=== PATIENT | male | born 2000 | race Caucasian/White ===

== ENCOUNTER 2023-09-07 03:05 | Emergency (ER) | payer OTHER, SELFPAY ==
[2023-09-07] VITALS (7 sets, daily range): BP systolic 90–133; BP diastolic 46–88; PULSE 60–89; RESP 12–18; TEMP 36.3–36.7; O2SAT 96–98; BMI 21.8
--- NOTE | ~2023-09-07 | XR_ITS ---
EXAMINATION: XR CHEST CLINICAL INFORMATION: Unresponsive COMPARISON: None available. TECHNIQUE: Frontal view of the chest was obtained. FINDINGS: Lung volumes are symmetric. No focal consolidation is seen. No evidence of pneumothorax, pleural effusion, or pulmonary edema. The cardiomediastinal contour is unremarkable. No acute osseous findings are seen. XR/XR chest 1V IMPRESSION: No acute cardiopulmonary findings.
--- NOTE | ~2023-09-07 | CT_ITS ---
EXAMINATION: NONCONTRAST HEAD CT NONCONTRAST CERVICAL SPINE CT INDICATION INFORMATION: Unresponsive COMPARISON: None TECHNIQUE: Separate noncontrast CT examinations of the head and cervical spine were performed. Coronal head CT images and coronal and sagittal cervical spine images were created at the technologist workstation. DLP: 989 mGy-cm DOSE LOWERING TECHNIQUES: This CT examination was performed using dose optimization techniques as appropriate, variously including the following: - Automated exposure control - Adjustment of mA and/or kV according to patient size (this includes techniques or standardized protocols for targeted exams were dose is matched to indication/reason for exam; i.e. extremities or head) - Use of iterative reconstruction technique FINDINGS: Head: There is no evidence of acute intracranial hemorrhage or territorial infarction. No abnormal mass-effect or midline shift is seen. Nicole to white matter differentiation is well preserved. No extra-axial fluid collections are identified. The ventricles are normal in size. There is no abnormal attenuation within the brain parenchyma. The osseous structures and soft tissues are normal. The mastoid air cells are well-aerated. Mucous retention cysts in the bilateral maxillary sinuses. Complete opacification of the right frontal sinus. Cervical spine: There is anatomic alignment of the vertebral bodies and posterior elements. Vertebral body heights are maintained. Intervertebral disc spaces are preserved. No evidence of acute fracture. No prevertebral soft tissue swelling. Visualized portions of the lung apices are unremarkable. Bilateral tonsilloliths are noted. The thyroid gland is unremarkable. CT/CT head/brain wo IV con IMPRESSION: No acute findings identified in the head or cervical spine.
--- NOTE | ~2023-09-07 | CT_ITS ---
EXAMINATION: NONCONTRAST HEAD CT NONCONTRAST CERVICAL SPINE CT INDICATION INFORMATION: Unresponsive COMPARISON: None TECHNIQUE: Separate noncontrast CT examinations of the head and cervical spine were performed. Coronal head CT images and coronal and sagittal cervical spine images were created at the technologist workstation. DLP: 989 mGy-cm DOSE LOWERING TECHNIQUES: This CT examination was performed using dose optimization techniques as appropriate, variously including the following: - Automated exposure control - Adjustment of mA and/or kV according to patient size (this includes techniques or standardized protocols for targeted exams were dose is matched to indication/reason for exam; i.e. extremities or head) - Use of iterative reconstruction technique FINDINGS: Head: There is no evidence of acute intracranial hemorrhage or territorial infarction. No abnormal mass-effect or midline shift is seen. Nicole to white matter differentiation is well preserved. No extra-axial fluid collections are identified. The ventricles are normal in size. There is no abnormal attenuation within the brain parenchyma. The osseous structures and soft tissues are normal. The mastoid air cells are well-aerated. Mucous retention cysts in the bilateral maxillary sinuses. Complete opacification of the right frontal sinus. Cervical spine: There is anatomic alignment of the vertebral bodies and posterior elements. Vertebral body heights are maintained. Intervertebral disc spaces are preserved. No evidence of acute fracture. No prevertebral soft tissue swelling. Visualized portions of the lung apices are unremarkable. Bilateral tonsilloliths are noted. The thyroid gland is unremarkable. CT/CT cervical spine wo IV con IMPRESSION: No acute findings identified in the head or cervical spine.
--- NOTE | 2023-09-07 03:08 | ECG_ITS ---
Test Reason : OVERDOSE Blood Pressure : / mmHG Vent. Rate : 063 BPM Atrial Rate : 063 BPM P-R Int : 174 ms QRS Dur : 096 ms QT Int : 438 ms P-R-T Axes : 078 089 068 degrees QTc Int : 448 ms Normal sinus rhythm Early repolarization Normal ECG No previous ECGs available Referred By: Tray Smith Electronically Signed By:SOHAM ALLEN MD
--- NOTE | 2023-09-07 03:11 | ED_ITS ---
HPI - Altered Mental Status General Chief Complaint: ETOH/Substance Use Stated Complaint: Unresponsive Time Seen by Provider: 09/07/23 03:07 Source: other (Bystander dropped him off) Mode of arrival: other (Dropped off by bystander) Limitations: other (Unresponsive) History of Present Illness HPI narrative: 23-year-old male unknown to us was dropped off by bystander who do not have much history on the patient, stated that the patient was talking then suddenly collapsed and became unresponsive. On arrival patient is unresponsive only open his eyes to sternal rub, smell alcohol on breath, no IV morales. Related Data Allergies Allergy/AdvReac Type Severity Reaction Status Date / Time Unable to Assess Allergy Verified 09/07/23 03:08 Review of Systems 2 Review of Systems: Yes Unobtainable due to mental status PMFSH Past Medical History Source: unable to obtain Social History Social History Smoked in Last 30 Days: Yes Use of substances other than those prescribed or required for medical reasons: Yes Advance Directives: No Advance Directives Information Provided: No Physical Exam ED Vital Signs: Vital Signs - 24 hr 09/07/23 03:14 09/07/23 04:36 09/07/23 04:59 Temperature 98.0 F Pulse Rate 89 89 84 Respiratory Rate 18 12 13 Blood Pressure 113/72 116/80 133/86 Pulse Oximetry 97 97 97 Oxygen Delivery Method Room Air Room Air Room Air 09/07/23 05:50 09/07/23 05:59 09/07/23 06:30 Temperature 97.3 F Pulse Rate 66 60 70 Respiratory Rate 14 13 15 Blood Pressure 107/52 L 90/46 L 126/88 Pulse Oximetry 98 97 96 Oxygen Delivery Method Room Air Room Air Room Air BMI result Body Mass Index 21.8 Vital signs have been reviewed and appear to be correct. Blood pressure elevated. Heart rate normal. Respiratory rate normal. Temperature normal. Oxygen saturation normal. Appearance: Unresponsive open his eyes to sternal rub, alcohol on breath. Head: Normal external exam. Normocephalic. Atraumatic. No Chandler signs noted. No raccoon eyes noted Eyes: PERRLA. EOMI. Conjunctiva and sclera normal. Eyelids normal. ENT: TM's Normal. Pharynx normal. Uvula midline. Moist mucous membranes. No trismus noted. No drooling noted. No muffled voice noted. Neck: Normal inspection. Neck supple. FROM. No adenopathy. Thyroid Normal. No meningeal signs. No neck mass noted. CVS: Normal heart rate and rhythm. Heart sound normal. No murmurs noted. Pulses normal throughout. Respiratory: No respiratory distress. Painless inspiration. Breath sounds normal. No wheezes/rales/rhonchi noted. Chest nontender. No accessory muscle usage noted or decreased air movement noted. Abdomen: Soft and nontender. Bowel sounds normal in all 4 quadrants. No distention noted. No organomegaly noted. No visible injury noted. Back: No CVA tenderness. Full range of motion noted. Skin: Skin warm and dry. Normal skin color. Normal skin turgor. No rashes/lesions/lacerations noted. Extremities: No lower extremity edema. Extremities exhibit normal range of motion. Extremities nontender. Neuro: Cranial nerve exam: II-XII are grossly intact No motor deficit. No sensory deficit. Reflexes normal. Course Reevaluation(s) Reevaluation #1: Patient now is more awake but disoriented and incoherent father is at the bedside confirmed patient use cocaine/PCP/alcohol. Patient now is agitated required Versed for sedation. Time: 04:30 Reevaluation #2: Patient is sedated with Versed, await for CT head/cervical spine likely negative for acute pathology, also waiting for urine sample to check for substance abuse, patient needs to be re-evaluated when he is more sober. Time: 06:00 Reevaluation #3: Patient is agitated, non redirectable require Versed to calm down. Case signed out to Dr. Gillette for re-evaluation when sober. Time: 07:00 Medications Administered Discontinued Medications Generic Name Dose Route Start Last Admin Trade Name Mayankq PRN Reason Stop Dose Admin Sodium Chloride 1,000 mls @ 999 mls/hr 09/07/23 03:08 09/07/23 04:47 Ns IV 09/07/23 04:08 Infused .Q1H1M ONE Infusion Midazolam HCl 2 mg 09/07/23 04:45 09/07/23 04:40 Midazolam Hcl/Pf 2 Mg/2 Ml Vial IVPUSH 09/07/23 04:46 2 mg ONCE ONE Administration Naloxone HCl 2 mg 09/07/23 03:08 09/07/23 03:20 Naloxone Hcl 2 Mg/2 Ml Syringe IVPUSH 09/07/23 03:09 2 mg ONCE ONE Administration Medical Decision Making Differential Diagnosis Differential Diagnoses: The differential diagnosis associated with the presentation includes (Intracranial bleed, severe alcohol intoxication, polysubstance abuse, electrolyte abnormality, severe anemia, UTI.) Admission/Observation Consideration of admission/observation: Escalation of care including admission/observation considered Lab Data MDM Lab Attestation statement: I reviewed the patient's lab results. 09/07/23 03:35 09/07/23 03:35 Labs: Lab Results 09/07/23 09/07/23 Range/Units 03:35 04:57 WBC 10.1 (4.8-10.8) X10*3/uL RBC 5.50 (4.60-5.80) X10*6/uL Hgb 16.8 (14.0-18.0) g/dl Hct 51.8 (42.0-52.0) % MCV 94.2 (80.0-98.0) fL MCH 30.5 (27.0-33.0) pg MCHC 32.4 (31.0-36.0) g/dl RDW 13.5 (11.0-16.0) % Plt Count 337 (160-400) X10*3/uL MPV 8.7 L (9.4-12.4) fL Immature Gran % (Auto) 0.6 H (0.0-0.4) % Neut % (Auto) 53.7 (45-73) % Lymph % (Auto) 30.5 (20-40) % [place] % (Auto) 8.4 (2-11) % Eos % (Auto) 6.4 H (0-4) % Baso % (Auto) 0.4 (0-2) % Lymph # (Auto) 3.1 (1.2-4.9) X10*3/uL [place] # (Auto) 0.9 (0.1-1.2) X10*3/uL Eos # (Auto) 0.7 H (0.0-0.4) X10*3/uL Baso # (Auto) 0.0 (0.0-0.2) X10*3/uL Abs Immat Gran (auto) 0.06 H (0.00-0.03) X10*3/uL Absolute Neuts (auto) 5.4 (2.0-8.3) x10*3/uL Absolute Nucleated RBC 0.000 (0.0-0.012) X10*3/uL Nucleated RBC % (auto) 0.0 (0.0-0.2) /100WBC Sodium 146 H (135-145) mmol/L Potassium 4.0 (3.3-5.1) mmol/L Chloride 110 H (96-108) mmol/L Carbon Dioxide 24 (22-29) mmol/L Anion Gap 16 (12-20) BUN 5 L (9-16) mg/dL Creatinine 0.80 (0.5-1.4) mg/dL Estim Creat Clear Calc 139.7 Estimated GFR > 60 Random Glucose 113 (60-115) mg/dL Calcium 9.1 (8.4-10.2) mg/dL Total Bilirubin 0.3 (0.0-1.0) mg/dL Direct Bilirubin 0.2 (0.0-0.5) mg/dL AST 22 (5-37) U/L ALT 33 (0-40) U/L Alkaline Phosphatase 65 (39-117) U/L Troponin I High Sens < 2.7 (<3.5-35.0) ng/L Total Protein 8.0 (6.5-8.0) g/dL Albumin 4.9 (3.5-5.0) g/dL Lipase 96 H (8-78) U/L Urine Color Yellow Urine Appearance Clear Urine pH 6.5 (5.0-9.0) Ur Specific [place] <= 1.005 (1.005-1.025) Urine Protein 100 (2+) H (Neg-Trace) mg/dL Urine Glucose (UA) Negative (Negative) mg/dL Urine Ketones Negative (Negative) mg/dL Urine Blood Negative (Negative) Urine Nitrite Negative (Negative) Ur Leukocyte Esterase Negative (Negative) Urine RBC 0-2 (0-2) /HPF Urine WBC 0-5 (0-5) /HPF Ur Squamous Epith Cells 0-2 (0-2) /HPF Urine Bacteria None Seen (None Seen) Hyaline Casts 0-2 (0-2) /LPF Salicylates < 5.0 L (15-30) mg/dL Urine Opiates Screen Not Detected (Not Detect) Urine Fentanyl Screen Not Detected (Not Detect) Acetaminophen < 3 (<30) mcg/mL Ur Barbiturates Screen Not Detected (Not Detect) Ur Phencyclidine Scrn POSITIVE H (Not Detect) Ur Amphetamines Screen Not Detected (Not Detect) U Benzodiazepines Scrn POSITIVE H (Not Detect) Urine Cocaine Screen POSITIVE H (Not Detect) U Marijuana (THC) Screen POSITIVE H (Not Detect) Ethyl Alcohol 305 H* mg/dL Influenza Type A (PCR) NEGATIVE (Negative) Influenza Type B (PCR) NEGATIVE (Negative) RSV RNA Qual (PCR) NEGATIVE (Negative) SARS-CoV-2 RNA (RT-PCR) NEGATIVE (Negative) Chronic Conditions Patient?s care impacted by: Other (Chronic polysubstance abuse/alcohol abuse.) Critical Care Time Critical Care Time Critical Care Time: Yes Total Critical Care Time: 45 Attestation: I spent 45 minutes providing critical care service to the patient, this including time spent at the bedside to evaluate the patient, reassess the patient, monitoring vital signs, review labs, and radiographic studies, counseling the patient/family, discussing the case with consultants, disposition the patient. Discharge Plan Discharge Clinical Impression: Alcoholic intoxication, Polysubstance abuse Patient Disposition: Still a Patient Instructions: Polysubstance Abuse (ED)
[2023-09-07] MEDS: Naloxone HCl 2 MG/2 ML SYRINGE IVPUSH (03:20)
[2023-09-07] MEDS: 0.9 % Sodium Chloride 1,000 ML 999 ML IV (03:20)
[2023-09-07 03:38] LABS: MANUAL DIFF FLAG NO
[2023-09-07 03:39] LABS: Basophils Percent Auto 0.4 % (0-2); Eosinophils Absolute Auto 0.7 X10*3/uL (0.0-0.4); Eosinophils Percent Auto 6.4 % (0-4); Hematocrit 51.8 % (42.0-52.0); Hemoglobin 16.8 g/dl (14.0-18.0); Imm Gran Abs Auto 0.06 X10*3/uL (0.00-0.03); Imm Gran Pct Auto 0.6 % (0.0-0.4); Lymphocytes Absolute Auto 3.1 X10*3/uL (1.2-4.9); Lymphocytes Percent Auto 30.5 % (20-40); Mean Corpuscular HGB Conc 32.4 g/dl (31.0-36.0); Mean Corpuscular Hemoglobin 30.5 pg (27.0-33.0); Mean Corpuscular Volume 94.2 fL (80.0-98.0); Mean Platelet Volume 8.7 fL (9.4-12.4); Monocytes Absolute Auto 0.9 X10*3/uL (0.1-1.2); Monocytes Percent Auto 8.4 % (2-11); Neutrophils Absolute Auto 5.4 x10*3/uL (2.0-8.3); Neutrophils Percent Auto 53.7 % (45-73); Platelet Count 337 X10*3/uL (160-400); Red Cell Distribution Width 13.5 % (11.0-16.0); White Blood Count 10.1 X10*3/uL (4.8-10.8)
[2023-09-07 03:55] LABS: Alanine Aminotransferase 33 U/L (0-40); Albumin Level 4.9 g/dL (3.5-5.0); Alkaline Phosphatase 65 U/L (39-117); Anion Gap 16 (12-20); Aspartate Amino Transferase 22 U/L (5-37); Bilirubin Direct 0.2 mg/dL (0.0-0.5); Bilirubin Total 0.3 mg/dL (0.0-1.0); Blood Urea Nitrogen 5 mg/dL (9-16); Calcium 9.1 mg/dL (8.4-10.2); Carbon Dioxide 24 mmol/L (22-29); Chloride 110 mmol/L (96-108); Creatinine Clr Calc Pharmacy 139.7; Estimated Glomerular Filt Rate > 60; Ethanol 305 mg/dL; Glucose Random 113 mg/dL (60-115); Lipase 96 U/L (8-78); Sodium 146 mmol/L (135-145)
[2023-09-07 04:01] LABS: Acetaminophen LAB < 3 mcg/mL (<30); Salicylate < 5.0 mg/dL (15-30); Troponin-I High Sensitivity < 2.7 ng/L (<3.5-35.0)
[2023-09-07 04:18] LABS: Influenza A PCR NEGATIVE (Negative); Influenza B PCR NEGATIVE (Negative); Resp Syncy Virus RNA Qual PCR NEGATIVE (Negative); SARS COV2 PCR INHOUSE NEGATIVE (Negative)
--- NOTE | 2023-09-07 04:38 | PC.NURSE ---
Patient dropped off by his friend at triage, unresponsive. Patient's friend does not have much history on patient. Per Gilberto, patient's friend, patient has not been acting himself all day. Gilberto's phone number [phone]. Patient is unresponsive, only opens his eyes to sternal rub. 20 GIV line established in R AC, labs drawn and sent to lab for processing. Patient given Narcan 2 mg IV and 1 L NS hung.
--- NOTE | 2023-09-07 04:39 | PC.NURSE ---
Patient is awake, confused, agitated, attempting to get out of the bed and trying to pull IV line out, remove monitor technician and BP cuff, unable to redirect patient. Versed 2 mg IV given. Patient is awake, VSS.
[2023-09-07] MEDS: Midazolam HCl/PF 2 MG/2 ML VIAL IVPUSH (04:40)
[2023-09-07 05:15] LABS: Amphetamine Screen Urine Not Detected (Not Detect); Barbiturates, Urine Not Detected (Not Detect); Benzodiazepines Screen Urine POSITIVE (Not Detect); Cannabinoid Screen Urine POSITIVE (Not Detect); Cocaine Screen Urine POSITIVE (Not Detect); Fentanyl, urine Not Detected (Not Detect); Opiate Screen Urine Not Detected (Not Detect); Phencyclidine Screen Urine POSITIVE (Not Detect)
--- NOTE | 2023-09-07 05:22 | PC.NURSE ---
Patient is sleeping, RR16, BP 99/53, P 74, O2 Sat 97% RA, not in distress.
[2023-09-07 05:29] LABS: Appearance Urine Clear; Color Urine Yellow; Glucose Urine UA Negative (Negative); Leukocyte Esterase Urine Negative (Negative); Nitrite Urine Negative (Negative); PH 6.5 (5.0-9.0); Specific Gravity - Urine <= 1.005 (1.005-1.025); UMIC TRIGGER UACC YES; Urine Blood Negative (Negative); Urine Ketones Negative (Negative); Urine Protein 100 (2+) mg/dL (Neg-Trace)
[2023-09-07 05:32] LABS: Bacteria Urine None Seen (None Seen); Hyaline Casts Urine 0-2 /LPF (0-2); RBC Urine 0-2 /HPF (0-2); Squamous Epithelial Cell Urine 0-2 /HPF (0-2); WBC Urine 0-5 /HPF (0-5)
[2023-09-07] MEDS: Midazolam HCl/PF 2 MG/2 ML VIAL 1 MG IVPUSH (06:51)
--- NOTE | 2023-09-07 08:03 | PC.NURSE ---
Assumed care of this pt at 0700. Pt alert, oriented to self, asked multiple times why is he here, where is his phone and where is his dad. Pt reminded of the situation each time.
[2023-09-10 07:43] LABS: Glucose, Whole Blood 114 mg/dL (60-115)
== END 2023-09-07 09:06 | disposition home or self-care (01) ==
PROVIDERS: Emergency Medicine; Emergency Provider Emergency Medicine Emergency Medical Services
DX: F10.129 Alcohol abuse with intoxication, unspecified (principal); F14.10 Cocaine abuse, uncomplicated; F12.10 Cannabis abuse, uncomplicated; R40.4 Transient alteration of awareness; M54.2 Cervicalgia; F16.10 Hallucinogen abuse, uncomplicated; Y90.8 Blood alcohol level of 240 mg/100 ml or more; Z20.828 Contact with and (suspected) exposure to other viral communicable diseases; Z20.822 Contact with and (suspected) exposure to COVID-19; Z79.899 Other long term (current) drug therapy
CPT/HCPCS: 0241U; 70450; 71045; 72125; 80048; 80076; 80143; 80179; 80307; 81001; 82947; 83690; 84484; 85025; 93005; 96361; 96374; 96375; 96376; 99285; J2250; J2310

== ENCOUNTER → 2023-09-07 03:08 | Outpatient (BNV) | payer OTHER, SELFPAY | PROVIDERS: Emergency Provider Emergency Medicine Emergency Medical Services; Visit Provider Internal Medicine Cardiovascular Disease | DX: I49.40 Unspecified premature depolarization (principal) | CPT/HCPCS: 93010 ==

== ENCOUNTER 2024-12-17 12:33 | Emergency (ER) | payer OTHER, SELFPAY ==
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
--- NOTE | ~2024-12-17 | CT_ITS ---
EXAMINATION: CT HEAD WITHOUT IV CONTRAST HISTORY: head trauma. TECHNIQUE: Unenhanced helical CT of the head was performed per standard departmental protocol. Coronal and sagittal reformats of the head were also evaluated. One or more of the following techniques was used for dose reduction: Automated exposure control, adjustment of the mA and/or kV according to patient size, use of iterative reconstruction technique. DLP: 723 mGy-cm COMPARISON: Comparison is made with the prior examination dated 09/07/2023. FINDINGS: BRAIN: The brain parenchyma is unremarkable. There is normal bajwa/white differentiation. The ventricular system is normal in size and configuration. There is no mass effect or midline shift. No intra- or extra-axial fluid collections are identified. SINUSES: The visualized paranasal sinuses are clear. The mastoid air cells and middle ear cavities are well pneumatized. ORBITS: The visualized orbits are unremarkable. BONES/SOFT TISSUES: There is mild left frontal soft tissue swelling. The calvarium is intact. No suspicious lytic or sclerotic lesions. CT/CT head/brain wo IV con IMPRESSION: Mild left frontal soft tissue swelling. No acute intracranial abnormality. Electronically signed by: Angel Villagomez MD 12/17/2024 02:45 PM EDT
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
[2024-12-17 12:50] VITALS: BP 124/71; PULSE 113; RESP 22; TEMP 36.9; O2SAT 97; BMI 19.0
[2024-12-17] MEDS: Haloperidol Lactate 5 MG/ML VIAL IM (13:21)
[2024-12-17] MEDS: diazePAM 10 MG/2 ML CARTRIDGE 2.5 MG IM (13:21)
[2024-12-17] MEDS: diphenhydrAMINE HCL 50 MG/ML VIAL IM (13:21)
--- NOTE | 2024-12-17 13:46 | PC.NURSE ---
pt sleeping in the stretcher, even and regular respirations, on continuous telemetry monitoring, 1:1 constant observation via patient observer at the bedside
[2024-12-17 14:00] VITALS: PULSE 93; RESP 16
[2024-12-17 14:45] LABS: Appearance Urine Clear; Color Urine Yellow; Glucose Urine UA Negative (Negative); Leukocyte Esterase Urine Negative (Negative); Nitrite Urine Negative (Negative); PH 5.5 (5.0-9.0); UMIC TRIGGER UACC YES; Urine Blood Moderate (2+) (Negative); Urine Ketones Negative (Negative); Urine Protein 100 (2+) mg/dL (Neg-Trace)
[2024-12-17 14:54] LABS: Bacteria Urine None Seen (None Seen); Hyaline Casts Urine 0-2 /LPF (0-2); RBC Urine 0-2 /HPF (0-2); Squamous Epithelial Cell Urine 0-2 /HPF (0-2); WBC Urine 0-5 /HPF (0-5)
[2024-12-17 15:02] LABS: Amphetamine Screen Urine Not Detected (Not Detect); Barbiturates, Urine Not Detected (Not Detect); Benzodiazepines Screen Urine Not Detected (Not Detect); Buprenorphine Scr Not Detected (Not Detect); Cannabinoid Screen Urine POSITIVE (Not Detect); Cocaine Screen Urine POSITIVE (Not Detect); Fentanyl, urine Not Detected (Not Detect); Methadone Screen, Urine Not Detected (Not Detect); Opiate Screen Urine Not Detected (Not Detect); Oxycodone Screen Urine Not Detected (Not Detect); Phencyclidine Screen Urine Not Detected (Not Detect)
[2024-12-17 15:32] LABS: MANUAL DIFF FLAG NO
[2024-12-17 15:33] LABS: Basophils Absolute Auto 0.1 X10*3/uL (0.0-0.2); Basophils Percent Auto 0.4 % (0-2); Eosinophils Absolute Auto 0.3 X10*3/uL (0.0-0.4); Eosinophils Percent Auto 1.7 % (0-4); Hematocrit 43.9 % (42.0-52.0); Hemoglobin 14.9 g/dl (14.0-18.0); Imm Gran Abs Auto 0.12 X10*3/uL (0.00-0.03); Imm Gran Pct Auto 0.7 % (0.0-0.4); Lymphocytes Percent Auto 12.1 % (20-40); Mean Corpuscular HGB Conc 33.9 g/dl (31.0-36.0); Mean Corpuscular Volume 91.3 fL (80.0-98.0); Mean Platelet Volume 8.7 fL (9.4-12.4); Monocytes Absolute Auto 1.5 X10*3/uL (0.1-1.2); Monocytes Percent Auto 8.7 % (2-11); Neutrophils Absolute Auto 12.9 x10*3/uL (2.0-8.3); Neutrophils Percent Auto 76.4 % (45-73); Platelet Count 293 X10*3/uL (160-400); Red Blood Count 4.81 X10*6/uL (4.60-5.80); Red Cell Distribution Width 13.3 % (11.0-16.0); White Blood Count 16.8 X10*3/uL (4.8-10.8)
[2024-12-17 15:38] LABS: INTERNATIONAL NORM RATIO 1.1 (0.9-1.1); Prothrombin Time 12.8 SEC (10.9-12.4)
--- OUTSIDE RECORDS SUMMARY | 2024-12-17 15:45 | XMS_ITS | Encounter Summary ---
Author Organization [facility] Address [address] [place] [phone] Phone Care Team Providers Care Actimize Architect Name Role Phone Ashley Velez MD Primary Care Provider [phone] Encounter Details Date Type Department Care Team (Late st Contact Info) Description 07/27/2011 Conversion Encounter Pediatric [facility]oles[facility] [address] [place] [id number] Social History Tobacco Use Types Packs/Day Years Used Date Smoking Tobacco: Never Assessed Sex and Gender Information Value Date Recorded Sex Assigned at Not on file Legal Sex Male 6:33 PM EDT Gender Identity Not on file Sexual Orientation Not on file documented as of this encounter Plan of Treatment Not on file documented as of this encounter Visit Diagnoses Not on filedocumented in this encounter Care Teams Actimize Architect Relationship Specialty Start Date End Date Ashley Velez MD [address] [place] [address] PCP - General 12/12/17 documented as of this encounter
--- OUTSIDE RECORDS SUMMARY | 2024-12-17 15:45 | XMS_ITS | Clinical Summary ---
Author Organization [facility] Address [address] [place] [id number] Phone Care Team Providers Care Water Use Inspector Name Role Phone Ashley Velez MD Primary Care Provider [phone] Immunizations Immunization Administration Dates Next Due DTaP 5 03/13/2005, 2,2000, 001,2000 H1N1 09/22/2009,05/19/2009 HPV Vaccine 9 Valent 07/06/2016,04/27/2016 Hep A, ped/adol 04/27/2016 Hep B, ped/adol 01/14/2001,2000,2000 Hib (PRP-T) 07/03/2001, 1,2000, 000 IPV 06/01/2004, 1,2000, 000 MMR 03/13/2005,07/03/2001 Meningococcal Conj (Menactra) MCV4P 04/27/2016,0 09/28/2011 Pneumococcal Conjugate 04/04/2001,2000,2000, 000 Tdap 09/28/2011 Varicella 09/22/2009,04/04/2001 Social History Tobacco Use Types Packs/Day Years Used Date Smoking Tobacco: Some Days Comments:Current Some Day Sm oker Sex and Gender Information Value Date Recorded Sex Assigned at Not on file Legal Sex Male 6:33 PM EDT Gender Identity Not on file Sexual Orientation Not on file Last Filed Vital Signs Vital Sign Reading Time Taken Comments Blood Pressure - - Pulse 70 12/11/2016 2:23 PM EDT Temperature 36.7 ??C (98 ??F) 12/11/2016 2:23 PM EDT Respiratory Rate - - Oxygen Saturation 99% 12/11/2016 2:23 PM EDT Inhaled Oxygen Concentration - - Weight 58 kg (127 lb 12.8 oz) 12/11/2016 2:23 PM EDT Height 182.9 cm (6') 12/11/2016 2:23 PM EDT Body Mass Index 17.33 12/11/2016 2:23 PM EDT Plan of Treatment Health Maintenance Due Date Last Done Comments HPV Vaccines (3 - Male 3-dose series) 10/25/2016 07/06/2016, 04/27/2016 Hepatitis A Vaccines (2 of 2 - 2-dose series) 10/25/2016 04/27/2016 DTaP,Tdap,and Td Vaccines (7 - Td or Tdap) 09/28/2021 09/28/2011, 03/13/2005, 10/10/2001, Additional history exists Influenza Vaccines (#1) 2024 COVID-19 Vaccine ( season) 2024 Hepatitis B Vaccines Completed 01/14/2001, 2000, 2000 Pneumococcal Vaccine Completed 04/04/2001, 2000, 2000, Additional history exists HIB Vaccines Completed 07/03/2001, 10/04, 2000, Additional history exists IPV Vaccines Completed 06/01/2004, 03/08, 2000, Additional history exists MMR Vaccines Completed 03/13/2005, 07/03/2001 Varicella Vaccines Completed 09/22/2009, 04/04/2001 Meningococcal Vaccine Completed 04/27/2016, 012 Men B Vaccine Aged Out No longer elig ible based on patient's age to complete this topic Care Teams Water Use Inspector Relationship Specialty Start Date End Date Ashley Velez MD [address] [facility] [place] [id number] PCP - General 12/12/17
[2024-12-17 15:51] LABS: Alanine Aminotransferase 27 U/L (0-40); Albumin Level 4.5 g/dL (3.5-5.0); Anion Gap 18 (12-20); Aspartate Amino Transferase 38 U/L (5-37); Bilirubin Direct 0.2 mg/dL (0.0-0.5); Bilirubin Total 0.5 mg/dL (0.0-1.0); Blood Urea Nitrogen 11 mg/dL (9-16); Carbon Dioxide 20 mmol/L (22-29); Chloride 106 mmol/L (96-108); Creatinine Clr Calc Pharmacy 135.7; Estimated Glomerular Filt Rate > 60; Ethanol 30 mg/dL; Glucose Random 87 mg/dL (60-115); Lipase 12 U/L (8-78); Magnesium 2.3 mg/dL (1.6-2.6); Potassium 3.5 mmol/L (3.3-5.1); Sodium 140 mmol/L (135-145); Total Protein 6.9 g/dL (6.5-8.0)
[2024-12-17 16:13] LABS: Alkaline Phosphatase 60 U/L (39-117)
[2024-12-17 16:15] LABS: Acetaminophen LAB < 3 mcg/mL (<30); Salicylate < 5.0 mg/dL (15-30)
[2024-12-17 17:19] VITALS: BP 128/63; PULSE 93; RESP 16; O2SAT 99
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
--- NOTE | 2024-12-17 19:29 | PC.NURSE ---
pt father Amilcar Hirschn reports he does not have a personal phone but may be reached by patients friend Medhat Gomez [phone]. If patient is to be discharged, please call Medhat who will get in contact with patients father Amilcar Pizarro.
--- NOTE | 2024-12-17 19:31 | PC.NURSE ---
pt escorted to behavioral pod by security with section 12 form. verbal nurse to nurse report given to receiving MARCO Curtis.
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
--- NOTE | 2024-12-17 21:15 | PC.NURSE ---
pt comes from the main ED with security. GAit steady, pt immediatley went to bed. Appears somewhat sedated however respirations are even unlabored. PT denies daily drinking- ciwa 0. Plan of care onoging
--- NOTE | 2024-12-17 23:58 | MHC.CARE ---
This process description writer contacted [facility] to inquire if they were familiar with the pt as he has no history at [facility] and unable to engage after multiple attempts. They denied any previous psychiatric evaluations at this time and indicated that he historically has only been there for medical reasons in the distant past. Information was passed to pod RN and Care Team Clinician.
--- NOTE | 2024-12-18 06:26 | PC.NURSE ---
Patient slept through the night, no distress observed/reported, 15 minutes safety check, no behavior and safety concerns, care consult ordered/pending evaluation, will continue to monitor
--- NOTE | 2024-12-18 07:39 | PC.NURSE ---
Assumed care of patient at 0645, patient appears to be in no apparent distress this am, sleeping, respirations even and unlabored. Continue plan of care for CARE team assessment
--- NOTE | 2024-12-18 07:50 | PC.NURSE ---
Pts CK was noted by this RN to be abnormally high, reached out to provider Minh, plan to re-check
--- NOTE | 2024-12-18 07:56 | MHC.EDTECH ---
Patient refused repeat labs, this tech attempted to educate the patient on the importance having blood test performed. Patient continuing to refuse. RN aware and speaking with patient.
--- NOTE | 2024-12-18 07:57 | PC.NURSE ---
Patient refusing labs, stating I gave them yesterday, I don't want them . After educating patient on importance of getting labs taken and risks of not, he became agreeable but asked to hold off for an hour
--- NOTE | 2024-12-18 09:46 | MHC.EDTECH ---
Patient again refusing lab work. RN aware and attempted to explain the importance of tests.
--- NOTE | 2024-12-18 09:59 | PC.NURSE ---
Pt refused additional lab draw, educated on risks of elevated CK
--- NOTE | 2024-12-18 11:22 | MHC.RECOVRN ---
Went to pt in 5 to offer support and resources for detox request. Pt reports he has been using alcohol for a long time. He was not open about amount, frequency, duration. He did state that he was unable to assess weather alcohol and other substance use was interfering with his work and health because I have been drinking for so long . Pt requesting further information about inpt. vs outpt. treatment. Information given and pt wishes to f/u in community with resources. He is concerned about leaving his father alone and therefore does not wish to attend detox. Father also uses alcohol and pt. hoping to help him quit too. Encouraged to attend [facility] for peer support, RC and assistance with obtaining a phone as he has no current cell or landline. Report to ED nurse Karen and Care Team. T/W available PRN.
[2024-12-18 11:45] VITALS: BP 143/71; PULSE 109; RESP 14; TEMP 36.1; O2SAT 95
[2024-12-18 11:47] VITALS: BP 143/71; PULSE 109; RESP 14; TEMP 36.1; O2SAT 95
== END 2024-12-18 11:55 | disposition home or self-care (01) ==
PROVIDERS: Physician Assistant; Emergency Provider Emergency Medicine
DX: S00.83XA Contusion of other part of head, initial encounter (principal); F23 Brief psychotic disorder; R51.9 Headache, unspecified; R45.851 Suicidal ideations; N43.2 Other hydrocele; X58.XXXA Exposure to other specified factors, initial encounter; Y93.9 Activity, unspecified; Y92.9 Unspecified place or not applicable; Y99.8 Other external cause status; Z51.81 Encounter for therapeutic drug level monitoring; Z79.899 Other long term (current) drug therapy
CPT/HCPCS: 36415; 70450; 72125; 80048; 80076; 80143; 80179; 80307; 81001; 82550; 83690; 83735; 85025; 85610; 96372; 99285; J1200; J1630; J3360; S9485

== ENCOUNTER → 2024-12-17 12:59 | Outpatient (BNV) | payer OTHER, SELFPAY | PROVIDERS: Emergency Provider Emergency Medicine; Visit Provider Radiology Diagnostic Radiology | DX: S14.109A Unspecified injury at unspecified level of cervical spinal cord, initial encounter (principal); S09.90XA Unspecified injury of head, initial encounter | CPT/HCPCS: 70450; 72125 ==

== ENCOUNTER 2025-07-29 15:31 | Emergency (ER) | payer OTHER, SELFPAY ==
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
[2025-07-29] MEDS: diazePAM 10 MG/2 ML CARTRIDGE 5 MG IVPUSH ×2 (15:43→15:50)
[2025-07-29 15:52] VITALS: BP 135/85; BP 158/74; PULSE 108; PULSE 113; RESP 18; O2SAT 100; O2SAT 96; BMI 22.9
[2025-07-29 15:58] LABS: Glucose, Whole Blood 95 mg/dL (60-115)
[2025-07-29 16:00] LABS: MANUAL DIFF FLAG NO
[2025-07-29 16:06] LABS: Hematocrit 46.8 % (42.0-52.0); Hemoglobin 15.8 g/dl (14.0-18.0); Imm Gran Abs Auto 0.14 X10*3/uL (0.00-0.03); Imm Gran Pct Auto 0.7 % (0.0-0.4); Lymphocytes Absolute Auto 1.6 X10*3/uL (1.2-4.9); Mean Corpuscular HGB Conc 33.8 g/dl (31.0-36.0); Mean Corpuscular Hemoglobin 30.9 pg (27.0-33.0); Mean Corpuscular Volume 91.6 fL (80.0-98.0); NRBC Abs Auto 0.000 X10*3/uL (0.0-0.012); NRBC Pct Auto 0.0 /100WBC (0.0-0.2); Platelet Count 339 X10*3/uL (160-400); Red Blood Count 5.11 X10*6/uL (4.60-5.80); White Blood Count 19.9 X10*3/uL (4.8-10.8)
--- NOTE | 2025-07-29 16:08 | PC.NURSE ---
pt continues to resist security and attempts to sit up despite mult meds. Medicated to be able to tolerate CT w/o movement. Is speaking and answers some questions with seeming accuracy. Cannot follow commands. ST on monitor.
[2025-07-29 16:09] VITALS: BP 126/75; PULSE 110; RESP 18; O2SAT 96
[2025-07-29 16:16] LABS: Alanine Aminotransferase 25 U/L (0-40); Albumin Level 5.4 g/dL (3.5-5.0); Alkaline Phosphatase 59 U/L (39-117); Anion Gap 15 (12-20); Aspartate Amino Transferase 31 U/L (5-37); Blood Urea Nitrogen 11 mg/dL (9-16); Calcium 9.3 mg/dL (8.4-10.2); Carbon Dioxide 22 mmol/L (22-29); Chloride 110 mmol/L (96-108); Creatinine Clr Calc Pharmacy 130.0; Estimated Glomerular Filt Rate > 60; Magnesium 2.2 mg/dL (1.6-2.6); Potassium 3.7 mmol/L (3.3-5.1); Sodium 143 mmol/L (135-145); Total Protein 8.0 g/dL (6.5-8.0)
[2025-07-29 16:26] VITALS: BP 116/64; PULSE 102; RESP 18; O2SAT 96
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
--- OUTSIDE RECORDS SUMMARY | 2025-07-29 17:01 | XMS_ITS | Encounter Summary ---
Author Organization [facility] Address [address] [place] [phone] Phone Care Team Providers Care Student Life Advisor Name Role Phone Ashley Velez MD Primary Care Provider [phone] Encounter Details Date Type Department Care Team (Late st Contact Info) Description 07/27/2011 Conversion Encounter Pediatric [facility] [address] [place] [id number] Social History Tobacco Use Types Packs/Day Years [...] on filedocumented in this encounter Care Teams Student Life Advisor Relationship Specialty Start Date End Date Ashley Velez MD [address] [place] [address] PCP - General 12/12/17 documented as of this encounter
--- OUTSIDE RECORDS SUMMARY | 2025-07-29 17:01 | XMS_ITS | Clinical Summary ---
Author Organization [facility] Address [address] [place] [phone] Phone Care Team Providers Care Fire Alarm Inspector Name Role Phone Ashley Velez MD Primary Care Provider Immunizations Immunization Administration Dates Next Due DTaP [...] 70 12/11/2016 2:23 PM EDT Temperature 36.7 C (98 F) 12/11/2016 2:23 PM EDT Respiratory Rate - [...] 10/10/2001, Additional history exists Influenza Vaccines (#1) 2025 COVID-19 Vaccine ( season) 2025 Hepatitis B Vaccines Completed 01/14/2001, 2000, 2000 [...] age to complete this topic Care Teams Fire Alarm Inspector Relationship Specialty Start Date End Date Ashley Velez MD [address] [place] [address] [place] [id number] PCP - General 12/12/17
[2025-07-29 18:14] VITALS: BP 105/61; PULSE 89; RESP 18; TEMP 36.9; O2SAT 96
--- NOTE | 2025-07-29 19:16 | PC.NURSE ---
Assumed pt care @ 1900. Pt resting quietly, vitals stable. Sitter with pt Plan of care ongoing.
[2025-07-29 22:05] LABS: Cannabinoid Screen Urine POSITIVE (Not Detect)
[2025-07-29 23:28] VITALS: BP 104/53; PULSE 76; RESP 18; TEMP 36.9; O2SAT 97
--- NOTE | 2025-07-29 23:30 | PC.NURSE ---
20 g IV left AC
[2025-07-30 03:58] VITALS: BP 104/53; PULSE 70; RESP 18; O2SAT 95
--- NOTE | 2025-07-30 06:03 | PC.NURSE ---
Report given to Cindy LARA in pod
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
--- NOTE | 2025-07-30 06:59 | PC.NURSE ---
Assumed care of patient at 0645, patient appears to be in no apparent distress am, resting on couch in BH 8, respirations even and unlabored. Continue plan of care for CARE team theresa
[2025-07-30 09:43] VITALS: BP 120/62; PULSE 76; RESP 20; TEMP 36.3; O2SAT 100
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
[2025-07-30 11:20] VITALS: BP 120/62; PULSE 76; RESP 20; TEMP 36.3; O2SAT 100
== END 2025-07-30 11:21 | disposition home or self-care (01) ==
PROVIDERS: Emergency Provider Emergency Medicine
DX: F10.920 Alcohol use, unspecified with intoxication, uncomplicated (principal); Y90.6 Blood alcohol level of 120-199 mg/100 ml; R45.6 Violent behavior; R45.851 Suicidal ideations
CPT/HCPCS: 36415; 70450; 70486; 72125; 80048; 80076; 80307; 82947; 83735; 85025; 96372; 96374; 99285; J3360; J3486; S9485

== ENCOUNTER → 2025-07-29 15:40 | Outpatient (BNV) | payer OTHER, SELFPAY | PROVIDERS: Emergency Provider Emergency Medicine; Visit Provider Radiology Diagnostic Radiology | DX: R41.82 Altered mental status, unspecified (principal); F10.929 Alcohol use, unspecified with intoxication, unspecified; S09.93XA Unspecified injury of face, initial encounter | CPT/HCPCS: 70450; 70486; 72125 ==